=== PATIENT | female | born 1970 | race Caucasian/White ===

== ENCOUNTER → 2023-08-30 10:30 | Outpatient (POV) | payer BC, SELFPAY ==
[2023-08-30 10:43] VITALS: BP 128/93; PULSE 97; RESP 18; O2SAT 98; BMI 32.0
--- NOTE | 2023-08-30 10:43 | EXP.PAIN.OV ---
HPI Data of Consult Patient: new to practice Consult date: 08/30/23 Requesting Physician: Brittany Al APRN Primary Care Provider: Nida Vallejo MD Consult Narrative History of present illness: Ms. Cordero is a 53 year old female who presents today as a new patient. She is a referral from Nida Vallejo's office. Today she rates her pain an 8 out of 10. Patient states her pain is all in and around her buttocks and tailbone and does radiate into her lower extremities. Patient states this has been going on since she suffered a fall back in April 2023. Patient states that she lost her footing and fell into a [place]. She does describe her pain as a sharp achy sensation with spasms into her legs and tingling. Patient states that it is worsened with increased activity or certain positioning. Patient states that she has tried a sciatic pillow and other additional positioning devices with minimal improvement. Patient has also tried heat and ice along with Tylenol and NSAIDs. Patient states that she is currently on Celebrex however it is not doing anything for her pain. Patient did have 6 weeks of physical therapy however it made her symptoms worse and that she did also continue to go to the chiropractor with no additional change. Patient denies any previous surgery history. She has had some steroid injections that have helped. Patient is interested in any help we may be able to provide. She is currently managed with pregabalin 225 mg twice a day from an outside provider. Her Pako has been reviewed and is appropriate. CC: Brittany Al APRN [facility] Disclaimer: The information contained in this section may have been updated after the patient was seen, as this information can be updated by other users. Medical History (Updated 08/30/23 @ 11:29 by Brittany Al APRN) COPD (chronic obstructive pulmonary disease) Depression Fibromyalgia GERD (gastroesophageal reflux disease) HTN (hypertension) Hypothyroid PORTER (obstructive sleep apnea) Surgical History (Updated 08/30/23 @ 10:49 by Araceli Mora RN) H/O section H/O oophorectomy History of thyroidectomy, subtotal Hx of cholecystectomy Family History (Updated 08/30/23 @ 10:52 by Araceli Mora RN) Other Cancer Diabetes Heart disease Social History Smoking Status: Current every day smoker alcohol intake: current current occupational status: other Travel in the last 8 weeks: None Review of Systems Review of Systems Review of systems:: pertinent systems reviewed and negative unless documented below Review of systems (narrative): Review of Systems: General: No recent weight changes, no fever, no sleep disturbances Respiratory: No cough, no shortness of air, no recurring pulmonary infections Cardiovascular/peripheral vascular: No chest pain, no palpitations, no edema, no shortness of breath Gastrointestinal: No new onset incontinence, normal bowel movements reported Genitourinary: No new onset incontinence Musculoskeletal: Buttocks/tailbone pain Psychiatric: [Normal mood/affect] Neurological: [Denies weakness in extremities], [denies balance issues] Meds Home Medications and Allergies Home Medications Medication Instructions Recorded Confirmed Type bupropion HCl 150 mg 24 hr tablet, 150 mg PO DAILY MOOD 08/30/23 08/30/23 History extended release celecoxib 200 mg capsule 200 mg PO DAILY Pain 08/30/23 08/30/23 History duloxetine 60 mg capsule,delayed 60 mg PO DAILY MOOD 08/30/23 08/30/23 History release levothyroxine 25 mcg tablet 25 mcg PO DAILY THYROID 08/30/23 08/30/23 History lisinopril 10 mg tablet 10 mg PO DAILY BLOOD PRESSURE 08/30/23 08/30/23 History omeprazole 20 mg capsule,delayed 20 mg PO DAILY GERD 08/30/23 08/30/23 History release pregabalin 225 mg capsule 225 mg PO DAILY Pain 08/30/23 08/30/23 History tiotropium bromide 2.5 1 puff inhalation BID Breathing 08/30/23 08/30/23 History mcg/actuation mist for inhalation Problems tizanidine 2 mg tablet 2 mg PO DAILY Pain 08/30/23 08/30/23 History New Prescriptions to Start Prescriptions: Allergies Allergy/AdvReac Type Severity Reaction Status Date / Time No Known Allergies Allergy Verified 08/30/23 10:44 Objective Narrative: Physical Exam: General: Alert and oriented x3, no acute distress, pleasant and cooperative Lungs: Respirations even and unlabored, symmetrical chest expansion Eyes: PERRL Musculoskeletal: Flexion and extension of lumbar [spine] somewhat guarded secondary to pain, [antalgic gait noted] point tenderness along sacral spine Neurological: Speech clear, no gross sensory deficit Additional findings Additional findings: [facility] 08/12/2023 MRI lumbar spine without contrast Findings: Paraspinal soft tissues are grossly unremarkable. Marrow signal is generally age-appropriate. Distal cord and conus medullary us have a grossly normal appearance with the tip of the conus at the level of L1. T10-11: Mild disc bulge without significant stenosis foramina patent. T11-12: Mild disc bulge. There is left paracentral disc protrusion extending below the level of the disc space, subligamentous. These factors produced mild spinal stenosis. Foramina are patent. T12-L1: Mild disc bulge without significant stenosis or foraminal narrowing L1-2: Disc intact. No spinal stenosis. Foramina patent L2-3: Mild circumferential disc bulge. Mild hypertrophic ligament and facet changes. These factors result in mild relative spinal stenosis. Mild bilateral foraminal stenosis. L3-4: Moderate circumferential disc bulge. Moderate hypertrophic ligament and facet changes contouring the thecal sac. Disc bulge limited by broad-based left foramen disc protrusion. These factors produce mild to moderate spinal stenosis, moderate left foraminal stenosis and mild right foraminal stenosis L4-5: Mild circumferential disc bulge. Moderate hypertrophic ligament and facet changes. These results in mild relative spinal stenosis. Bulge is eccentric to the left producing left mild foraminal stenosis. Right foramen is patent. L5-S1: Central disc protrusion that extends slightly below the level of the disc space. This narrows the canal without distortion of the thecal sac or direct nerve root impingement foramina are patent. Assessment and Plan *Assessment and plan (1) Pain in the coccyx: Status: Acute Category: Medical Code(s): M53.3 - Sacrococcygeal disorders, not elsewhere classified (2) Buttock pain: Status: Acute Category: Medical Code(s): M79.18 - Myalgia, other site Plan Patient is experiencing significant pain in and around her buttocks and tailbone with radiating symptoms down into her legs. Patient did have point tenderness along her sacral spine during today's visit. I have discussed with the patient that I do believe that she would benefit from a caudal epidural. Risk and benefits discussed with patient and she would like to proceed forward with this plan of care. Patient is not on any blood thinners. I have also discussed with the patient that I will do x-ray and MRI without contrast of her sacral spine. Patient agrees with this plan of care. Patient will be ordered compounded cream. Patient has tried and failed conservative treatment such as oral medications, heat and ice, topicals, physical therapy, at home stretching and exercise for longer than 6 weeks and chiropractor therapy. Patient will be scheduled for a caudal epidural under fluoroscopy. Patient has been instructed to contact the clinic with any concerns before the next appointment. Dr. Amador has reviewed this note and agrees with this plan of care. This note was dictated using voice recognition software and make contain errors or omissions.
== END ==
PROVIDERS: PCP Family Medicine; Visit Provider Nurse Practitioner Family
DX: M53.3 Sacrococcygeal disorders, not elsewhere classified (principal); M79.18 Myalgia, other site
CPT/HCPCS: 99202; G0463

== ENCOUNTER 2023-08-30 11:28 | Outpatient (CLI) | payer BC, SELFPAY ==
--- NOTE | 2023-08-30 11:37 | XR_ITS ---
FINAL REPORT CLINICAL HISTORY: TAILBONE PAIN FINDINGS: Sacrum and coccyx 3 views were obtained. There is no acute fracture or dislocation. Visualized joint spaces are normally aligned. Soft tissues are unremarkable. IMPRESSION: No acute bony abnormality. Reviewed, Interpreted and Dictated by Roge Finley MD Transcribed by Elisha Rodriguez Authenticated and . [facility]
== END 2023-08-30 23:59 ==
PROVIDERS: PCP Family Medicine; Visit Provider Nurse Practitioner Family
DX: M53.3 Sacrococcygeal disorders, not elsewhere classified (principal)
CPT/HCPCS: 72220

== ENCOUNTER 2023-09-14 09:15 | Day surgery (SDC) | payer BC, SELFPAY ==
[2023-09-14 09:44] VITALS: BP 138/90; PULSE 91; RESP 16; TEMP 36.6; O2SAT 96; BMI 31.1
[2023-09-14] MEDS: methylPREDNISolone ACETATE 80MG/ML VIAL 80 MG (10:24)
[2023-09-14 10:25] VITALS: BP 118/82; PULSE 85; RESP 18; O2SAT 98
[2023-09-14 10:27] VITALS: BP 118/82; PULSE 77; RESP 18; O2SAT 98
--- NOTE | 2023-09-14 10:29 | EXP.PAIN.PRO ---
Procedure Date: 09/14/23 Time: 10:20 Anesthesiologist:: Ramon Griffin CRNA Complications:: None Pre-procedure Diagnosis:: Degenerative disc lumbar spine multilevels. Lumbar radiculopathy. Disc bulge L4-5, L5-S1. Foraminal stenosis L4-5, L5-S1. Post-procedure Diagnosis:: Same. Indications for Procedure:: Patient is a very pleasant 53-year-old female that comes our clinic today for scheduled caudal epidural steroid injection. After further review and a lengthy discussion with the patient and her we will elect for L4-5 lumbar epidural steroid injection intralaminar. This will be done under fluoroscopy. Answered patient's questions. She wishes to proceed. Patient main complaint is low back pain as well as bilateral hip and leg radicular symptoms at times. Right greater than left. She rates her pain 7/10. Procedure Details:: Procedure: Lumbar epidural steroid injection under fluoroscopy Informed consent was obtained and the risks and benefits of the procedure were explained to the patient. The patient was taken to the procedure room and noninvasive monitors placed, including noninvasive blood pressure cuff and pulse oximeter. The back was viewed using C-arm Fluoroscopy and prepped using Chloraprep as a cleansing solution and the L4-L5 interspace was palpated. Skin and subcutaneous tissues were anesthetized using lidocaine 1.5% and a 25-gauge needle. After this, an 18-gauge Touhy epidural needle was placed into the L4-L5 interspace and advanced using fluoroscopic guidance and loss of resistance to air until the epidural space was encountered. After confirmation of needle placement in the epidural space, with dye, a solution containing normal saline, 3 mL and Depo-Medrol 80 mg were incrementally injected into the lumbar epidural space. The patient tolerated the procedure well with no complications. The patient was observed in the Pain Clinic and then discharged home neurologically intact. Plan and Disposition:: Patient was discharged without incident.
[2023-09-14 10:30] VITALS: BP 135/88; PULSE 85; RESP 18; O2SAT 96
== END 2023-09-14 10:30 | disposition home or self-care (01) ==
PROVIDERS: PCP Family Medicine; Visit Provider Nurse Anesthetist, Certified Registered
DX: M51.16 Intervertebral disc disorders with radiculopathy, lumbar region (principal); M51.26 Other intervertebral disc displacement, lumbar region; M48.061 Spinal stenosis, lumbar region without neurogenic claudication
CPT/HCPCS: 62323; J1040

== ENCOUNTER 2023-09-24 14:29 | Outpatient (CLI) | payer BC, SELFPAY ==
--- NOTE | 2023-09-24 14:36 | MR_ITS ---
FINAL REPORT CLINICAL HISTORY: TAILBONE PAIN SINCE FALL 5 MONTHS AGO FINDINGS: Multiplanar MR images of the pelvis were performed without contrast. There is decreased signal L5-S1. There is no fracture, bone bruising or marrow edema. No bony mass is identified. SI joints are intact. There is no evidence of avascular necrosis. No significant joint effusion is seen. The musculature is intact. The tendons are intact. There is no soft tissue mass or cyst identified. IMPRESSION: No focal abnormality identified. Reviewed, Interpreted and Dictated by Steven Mercedes MD Transcribed by Elisha Rodriguez Authenticated and [facility]
== END 2023-09-24 23:59 ==
LOC: RAD 14:30
PROVIDERS: PCP Family Medicine; Visit Provider Nurse Practitioner Family
DX: M53.3 Sacrococcygeal disorders, not elsewhere classified (principal)
CPT/HCPCS: 72195

== ENCOUNTER → 2023-09-29 11:17 | Outpatient (POV) | payer BC, SELFPAY ==
--- NOTE | 2023-09-29 11:59 | EXP.PAIN.SOA ---
[facility] Pain Management SOAP Note Subjective:: Patient is a pleasant 53-year-old female who presents today for follow-up lumbar epidural steroid injection L4-L5 on 09/14/2023. We are currently treating the patient for coccyx pain, buttocks pain. Today she rates her pain a 3 out of 10. Patient states she has had at least 90% improvement following this injection. Patient states that she has been able to increase her activity with decreased pain symptoms and feels overall more functional. She does state that she continues to have achy sensations that are spasm-like into her legs. She describes them also as occasional charley horses. Patient is currently managed with pregabalin from an outside provider and compounded cream from our office. Her Pako has been reviewed and is appropriate. Review of Systems: General: No recent weight changes, no fever, no sleep disturbances Respiratory: No cough, no shortness of air, no recurring pulmonary infections Cardiovascular/peripheral vascular: No chest pain, no palpitations, no edema, no shortness of breath Gastrointestinal: No new onset incontinence, normal bowel movements reported Genitourinary: No new onset incontinence Musculoskeletal: Low back pain, leg cramps Psychiatric: [Normal mood/affect] Neurological: [Denies weakness in extremities], [denies balance issues] Objective:: Physical Exam: General: Alert and oriented x3, no acute distress, pleasant and cooperative Lungs: Respirations even and unlabored, symmetrical chest expansion Eyes: PERRL Musculoskeletal: Flexion and extension of lumbar [spine] somewhat guarded secondary to pain, [antalgic gait noted] Neurological: Speech clear, no gross sensory deficit Assessment:: Low back pain, buttocks pain, coccyx pain restless leg syndrome Plan:: Patient has had significant improvement following her injection and does not require any additional injection therapy at this time. I will send in a 14-day supply of ropinirole 0.25 mg at bedtime. Patient had been counseled to contact our office if this does provide significant relief and she needs refills between now and her next visit. Patient will return to clinic in 1 month for reevaluation of symptoms and plan of care. Patient has been instructed to contact the clinic with any concerns before the next appointment. Dr. Amador has reviewed this note and agrees with this plan of care. This note was dictated using voice recognition software and make contain errors or omissions. [facility] Disclaimer: The information contained in this section may have been updated after the patient was seen, as this information can be updated by other users. Medical History COPD (chronic obstructive pulmonary disease) Depression Fibromyalgia GERD (gastroesophageal reflux disease) HTN (hypertension) Hypothyroid PORTER (obstructive sleep apnea) Surgical History H/O section H/O oophorectomy History of thyroidectomy, subtotal Hx of cholecystectomy Family History Other Cancer Diabetes Heart disease Social History Smoking Status: Current every day smoker alcohol intake: current current occupational status: other Travel in the last 8 weeks: None
[2023-09-29 12:45] VITALS: BP 127/80; PULSE 80; RESP 18; O2SAT 99; BMI 31.5
== END | disposition home or self-care (01) ==
PROVIDERS: PCP Family Medicine; Visit Provider Nurse Practitioner Family
DX: M54.50 Low back pain, unspecified (principal); M79.18 Myalgia, other site; M53.3 Sacrococcygeal disorders, not elsewhere classified; G25.81 Restless legs syndrome
CPT/HCPCS: 99212; G0463

== ENCOUNTER 2023-10-27 13:24 | Outpatient (POV) | payer BC, SELFPAY ==
--- NOTE | 2023-10-27 13:40 | A.OFFVIS_ITS ---
[facility] Pain Management SOAP Note Subjective:: Patient is a pleasant 53-year-old female who presents today for 1 month follow- up. She rates her pain today a 1 out of 10. She denies any new trauma or injury. She does state that she has continued to do well following her lumbar epidural steroid injection that she had back in the middle of September. She states she has still been able to increase her activity and feels overall more functional. Patient does state that the ropinirole at bedtime has also significantly improved her overall symptoms. She is requesting refills. Patient is also prescribed compounded cream from our office and pregabalin from an outside provider. Her Pako has been reviewed and is appropriate. Review of Systems: General: No recent weight changes, no fever, no sleep disturbances Respiratory: No cough, no shortness of air, no recurring pulmonary infections Cardiovascular/peripheral vascular: No chest pain, no palpitations, no edema, no shortness of breath Gastrointestinal: No new onset incontinence, normal bowel movements reported Genitourinary: No new onset incontinence Musculoskeletal: Low back pain Psychiatric: [Normal mood/affect] Neurological: [Denies weakness in extremities], [denies balance issues] Objective:: Physical Exam: General: Alert and oriented x3, no acute distress, pleasant and cooperative Lungs: Respirations even and unlabored, symmetrical chest expansion Eyes: PERRL Musculoskeletal: Flexion and extension of lumbar [spine] somewhat guarded secondary to pain, [antalgic gait noted] Neurological: Speech clear, no gross sensory deficit Assessment:: Degenerative disc disease of lumbar spine with lumbar radiculopathy symptoms, coccyx pain, buttocks pain Plan:: Patient continues to do well following her lumbar epidural and does not require any additional injection therapy. I will refill the patient's ropinirole 0.25 mg at bedtime and provide a 3-month supply of this medication. Patient will return to clinic in 3 months for reevaluation of symptoms and plan of care. Patient has been instructed to contact the clinic with any concerns before the next appointment. Dr. Amador has reviewed this note and agrees with this plan of care. This note was dictated using voice recognition software and make contain errors or omissions. [facility] Disclaimer: The information contained in this section may have been updated after the patient was seen, as this information can be updated by other users. Medical History Depression Hypothyroid HTN (hypertension) GERD (gastroesophageal reflux disease) COPD (chronic obstructive pulmonary disease) PORTER (obstructive sleep apnea) Fibromyalgia Surgical History H/O section History of thyroidectomy, subtotal Hx of cholecystectomy H/O oophorectomy Family History Other Cancer Diabetes Heart disease Social History Smoking Status: Current every day smoker alcohol intake: current current occupational status: other Travel in the last 8 weeks: None
[2023-10-27 14:30] VITALS: BP 112/86; PULSE 91; RESP 20; O2SAT 97; BMI 33.0
== END 2023-10-27 23:59 | disposition home or self-care (01) ==
PROVIDERS: PCP Family Medicine; Visit Provider Nurse Practitioner Family
DX: M51.16 Intervertebral disc disorders with radiculopathy, lumbar region (principal); M53.3 Sacrococcygeal disorders, not elsewhere classified; M79.18 Myalgia, other site
CPT/HCPCS: 99212; G0463

== ENCOUNTER 2023-12-01 13:14 | Outpatient (POV) | payer BC, SELFPAY ==
[2023-12-01 13:23] VITALS: BP 127/89; PULSE 91; RESP 18; O2SAT 97; BMI 32.1
--- NOTE | 2023-12-01 14:03 | A.OFFVIS_ITS ---
[facility] Pain Management SOAP Note Subjective:: Patient is a pleasant 53-year-old female who presents today for follow-up. Today she rates her pain a 7 out of 10. Patient states that her pain has started to come back in her low back and legs. Patient does state that she has not had any return of her tailbone pain. Patient does describe her pain as an aching, throbbing sensation with numbness and tingling into her extremities. Patient does state that the right is worse than the left. Patient did have a lumbar epidural steroid injection of L4-L5 that did provide more than 50% relief up until the last week or 2. Patient would like to proceed forward with repeating this injection due to her pain interfering with her ability to perform activities of daily living again. Patient is prescribed ropinirole at bedtime from our office and was given refills up until December. She is also prescribed compounding cream from our office and states that she does need refills on this. Patient states that she was recently given tizanidine at night and states that it helped as well. Her Pako has been reviewed and is appropriate. Review of Systems: General: No recent weight changes, no fever, no sleep disturbances Respiratory: No cough, no shortness of air, no recurring pulmonary infections Cardiovascular/peripheral vascular: No chest pain, no palpitations, no edema, no shortness of breath Gastrointestinal: No new onset incontinence, normal bowel movements reported Genitourinary: No new onset incontinence Musculoskeletal: Low back pain, bilateral leg pain Psychiatric: [Normal mood/affect] Neurological: [Denies weakness in extremities], [denies balance issues] Objective:: Physical Exam: General: Alert and oriented x3, no acute distress, pleasant and cooperative Lungs: Respirations even and unlabored, symmetrical chest expansion Eyes: PERRL Musculoskeletal: Flexion and extension of lumbar [spine] somewhat guarded secondary to pain, [antalgic gait noted] Neurological: Speech clear, no gross sensory deficit Assessment:: Degenerative disc disease of lumbar spine with lumbar radiculopathy symptoms, coccyx pain, buttocks pain Plan:: Patient is experiencing worsening pain in her low back and legs with limited range of motion. I have discussed with patient that she may benefit from repeat lumbar epidural steroid injection. Risk and benefits were discussed with the patient and she would like to proceed forward with this plan of care. Patient did previously have a lumbar epidural that did provide upwards of 50 to 60% improvement lasting several months. Patient has continued to do at home exercising and stretching between injections with minimal relief. We will schedule the patient for an LESI L4-L5 under fluoroscopy. I will send in refills on her compounded cream. Patient has been instructed to contact the clinic with any concerns before the next appointment. Dr. Amador has reviewed this note and agrees with this plan of care. This note was dictated using voice recognition software and make contain errors or omissions. [facility] Disclaimer: The information contained in this section may have been updated after the patient was seen, as this information can be updated by other users. Medical History Depression Hypothyroid HTN (hypertension) GERD (gastroesophageal reflux disease) COPD (chronic obstructive pulmonary disease) PORTER (obstructive sleep apnea) Fibromyalgia Surgical History H/O section History of thyroidectomy, subtotal Hx of cholecystectomy H/O oophorectomy Family History Other Cancer Diabetes Heart disease Social History Smoking Status: Current every day smoker alcohol intake: current current occupational status: other Travel in the last 8 weeks: None
== END 2023-12-01 23:59 | disposition home or self-care (01) ==
LOC: SC.PAIN 13:15
PROVIDERS: PCP Family Medicine; Visit Provider Nurse Practitioner Family
DX: M51.16 Intervertebral disc disorders with radiculopathy, lumbar region (principal); M53.3 Sacrococcygeal disorders, not elsewhere classified; M79.18 Myalgia, other site
CPT/HCPCS: 99212; G0463

== ENCOUNTER 2023-12-21 09:27 | Day surgery (SDC) | payer BC, SELFPAY ==
[2023-12-21 09:54] VITALS: BP 140/96; PULSE 85; RESP 18; O2SAT 96
--- NOTE | 2023-12-21 09:57 | EXP.PAIN.PRO ---
Procedure Date: 12/21/23 Time: 10:00 Anesthesiologist:: Ramon Griffin CRNA Complications:: None Pre-procedure Diagnosis:: Degenerative disc lumbar spine multilevels. Lumbar radiculopathy. Lumbar spondylosis. Post-procedure Diagnosis:: Same. Indications for Procedure:: Patient is a very pleasant 53-year-old female comes our clinic today for lumbar epidural steroid injection at the L4-5 level. Patient responded very well to this injection in the past. She reports low back pain she describes as constant, dull, aching. Also, she reports bilateral hip and leg radicular symptoms. She rates her pain 7/10. Procedure Details:: Procedure: Lumbar epidural steroid injection under fluoroscopy Informed consent was obtained and the risks and benefits of the procedure were explained to the patient. The patient was taken to the procedure room and noninvasive monitors placed, including noninvasive blood pressure cuff and pulse oximeter. The back was viewed using C-arm Fluoroscopy and prepped using Chloraprep as a cleansing solution and the L4-L5 interspace was palpated. Skin and subcutaneous tissues were anesthetized using lidocaine 1.5% and a 25-gauge needle. After this, an 18-gauge Touhy epidural needle was placed into the L4-L5 interspace and advanced using fluoroscopic guidance and loss of resistance to air until the epidural space was encountered. After confirmation of needle placement in the epidural space, with dye, a solution containing normal saline, 3 mL and Depo-Medrol 80 mg were incrementally injected into the lumbar epidural space. The patient tolerated the procedure well with no complications. The patient was observed in the Pain Clinic and then discharged home neurologically intact. Plan and Disposition:: Patient was discharged without incident.
[2023-12-21] MEDS: methylPREDNISolone ACETATE 80MG/ML VIAL 80 MG (09:59)
[2023-12-21 10:02] VITALS: BP 130/83; PULSE 89; RESP 18; TEMP 36.2; O2SAT 98; BMI 32.1
[2023-12-21 10:03] VITALS: BP 136/95; PULSE 89; RESP 18; O2SAT 98
== END 2023-12-21 10:04 | disposition home or self-care (01) ==
PROVIDERS: PCP Family Medicine; Visit Provider Nurse Anesthetist, Certified Registered
DX: M51.16 Intervertebral disc disorders with radiculopathy, lumbar region (principal); M47.26 Other spondylosis with radiculopathy, lumbar region
CPT/HCPCS: 62323; J1010

== ENCOUNTER 2024-01-06 11:15 | Outpatient (POV) | payer BC, SELFPAY ==
--- NOTE | 2024-01-06 11:42 | EXP.PAIN.SOA ---
[facility] Pain Management SOAP Note Subjective:: Patient is a pleasant 53-year-old female who presents today for follow-up of lumbar epidural steroid injection L4-L5 on 12/21/2023. Today she rates her pain a 6 out of 10. Patient states that she did get significant relief of at least 50% with this injection however she feels like it only lasted about 3 days and then she started having more pain in and around her low back and her right hip. She describes this as an aching, throbbing sensation that stays in this area and does not radiate all the way down her leg. Patient states the pain does interfere with her ability perform activities of daily living such as cooking and cleaning. Patient does state that she is scheduled to go on vacation on 15 January to the [facility]. Patient states she would be very interested if she could see about doing an injection before she leaves. Patient is prescribed ropinirole at bedtime, tizanidine at bedtime from our office. She is also prescribed compounding cream from our office. She is prescribed pregabalin from an outside provider. Her Pako has been reviewed and is appropriate. Review of Systems: General: No recent weight changes, no fever, no sleep disturbances Respiratory: No cough, no shortness of air, no recurring pulmonary infections Cardiovascular/peripheral vascular: No chest pain, no palpitations, no edema, no shortness of breath Gastrointestinal: No new onset incontinence, normal bowel movements reported Genitourinary: No new onset incontinence Musculoskeletal: Low back pain, right hip pain Psychiatric: [Normal mood/affect] Neurological: [Denies weakness in extremities], [denies balance issues] Objective:: Physical Exam: General: Alert and oriented x3, no acute distress, pleasant and cooperative Lungs: Respirations even and unlabored, symmetrical chest expansion Eyes: PERRL Musculoskeletal: Flexion and extension of lumbar [spine] somewhat guarded secondary to pain, [antalgic gait noted] point tenderness along right SI with positive right Kamran's, Samantha's, Gaenslen's, compression and distraction exam Neurological: Speech clear, no gross sensory deficit Assessment:: Degenerative disc disease of lumbar spine with lumbar radiculopathy symptoms, right sacroiliitis Plan:: Patient is experiencing worsening pain in her low back and right hip with limited range of motion and point tenderness at her right SI with a positive right Kamran's, Samantha's, Gaenslen's, compression and distraction exam. I have discussed with patient that she may benefit from a right SI injection. Risk and benefits were discussed with the patient and she would like to proceed forward with this plan of care. I will refill the patient's tizanidine and ropinirole and provide a 3-month supply of this medication. Patient has tried and failed conservative therapy including continued at home exercising and stretching between injections. We will schedule the patient for a right SI injection under fluoroscopy. Patient has been instructed to contact the clinic with any concerns before the next appointment. Dr. Amador has reviewed this note and agrees with this plan of care. This note was dictated using voice recognition software and make contain errors or omissions. [facility] Disclaimer: The information contained in this section may have been updated after the patient was seen, as this information can be updated by other users. Medical History Depression Hypothyroid HTN (hypertension) GERD (gastroesophageal reflux disease) COPD (chronic obstructive pulmonary disease) PORTER (obstructive sleep apnea) Fibromyalgia Surgical History H/O section History of thyroidectomy, subtotal Hx of cholecystectomy H/O oophorectomy Family History Other Cancer Diabetes Heart disease Social History Smoking Status: Current every day smoker alcohol intake: current current occupational status: other Travel in the last 8 weeks: None
[2024-01-06 12:14] VITALS: BP 126/70; PULSE 82; RESP 16; O2SAT 98; BMI 32.1
== END 2024-01-06 23:59 | disposition home or self-care (01) ==
PROVIDERS: PCP Family Medicine; Visit Provider Nurse Practitioner Family
DX: M51.16 Intervertebral disc disorders with radiculopathy, lumbar region (principal); M46.1 Sacroiliitis, not elsewhere classified
CPT/HCPCS: 99212; G0463

== ENCOUNTER 2024-02-01 07:56 | Day surgery (SDC) | payer BC, SELFPAY ==
[2024-02-01 08:22] VITALS: BP 135/80; PULSE 72; RESP 18; TEMP 36.4; O2SAT 99; BMI 32.1
[2024-02-01] MEDS: LIDOCAINE 1% 5ML PF VIAL 5 ML (08:39)
[2024-02-01] MEDS: BUPIVACAINE 0.25% 10ML INJ 25 MG IJ (08:39)
[2024-02-01 08:40] VITALS: BP 132/88; PULSE 60; RESP 18; O2SAT 97
[2024-02-01] MEDS: methylPREDNISolone ACETATE 80MG/ML VIAL 80 MG (08:40)
[2024-02-01 08:41] VITALS: BP 132/88; PULSE 60; RESP 18; O2SAT 97
[2024-02-01 08:46] VITALS: BP 118/86; PULSE 66; RESP 18; O2SAT 97
--- NOTE | 2024-02-01 08:49 | P.PCN_ITS ---
Procedure Date: 02/01/24 Time: 08:30 Anesthesiologist:: Ramon Griffin CRNA Complications:: None Pre-procedure Diagnosis:: right sacroiliitis Post-procedure Diagnosis:: Right sacroiliitis Indications for Procedure:: Patient is a pleasant 53-year-old female comes our clinic today for right sa croiliac joint injection of cortisone. Patient reports right posterior hip pain. Patient reports right low lumbar back pain. She describes difficulty transitioning from sitting to standing. Ambulation is difficult due to pain intensifying. She rates her pain 8/10. Procedure Details:: Informed consent was obtained and the risk and benefits of the procedure were explained to the patient.~ The patient was taken to the procedure room and noninvasive monitors were placed including noninvasive blood pressure cuff and pulse oximeter.~ The patient was placed prone on the procedure table.~ The~ right hip was cleansed using Betadine as a cleansing solution.~ C-arm fluorosocpy was used to view the right SI joint.~ The skin and subcutaneous tissues were anesthetized using Lidocaine 1.5% and a 25-gauge needle.~ After this, a 22-gauge spinal needle was inserted under fluoroscopic guidance into the inferior aspect of the right SI joint.~ Omnipaque dye was injected and a good spread was seen throughout the joint.~ After this, approximately 5 mL of bupivacaine 0.25% and Depo-Medrol 40 mg was incrementally injected into the sacroiliac joint.~ The patient tolerated the procedure well with no complications.~ The patient was observed in the Pain Clinic, then discharged home neurologically intact.~ Plan and Disposition:: Patient was discharged without incident.
== END 2024-02-01 08:46 | disposition home or self-care (01) ==
LOC: SC.PAINP 07:56
PROVIDERS: PCP Family Medicine; Visit Provider Nurse Anesthetist, Certified Registered
DX: M46.1 Sacroiliitis, not elsewhere classified (principal)
CPT/HCPCS: 27096; G0260; J1010